=== PATIENT | female | born 1950 | race African-American/Black ===

== ENCOUNTER 2016-06-19 06:38 | Day surgery (SDC) | payer OTHER ==
[2016-06-12 09:57] LABS: BASOPHILS 0.8 %; BASOPHILS ABSOLUTE 0.08 10/3/uL (0.0-0.16); EOSINOPHILS 3.1 %; HEMATOCRIT 39.3 % (36.0-48.0); HEMOGLOBIN 13.1 g/dL (12.0-16.0); IMMATURE GRANULOCYTES 0.3 %; IMMATURE GRANULOCYTES ABSOLUTE 0.03 10/3/uL (0.0-0.11); LYMPHOCYTES 31.8 %; LYMPHOCYTES ABSOLUTE 3.08 10/3/uL (0.67-4.30); MEAN CORPUS HGB CONC 33.3 g/dL (32.0-36.0); MEAN CORPUSCULAR HEMOGLOB 27.9 pg (26.0-34.0); MEAN PLATELET VOLUME 10.9 fL (9.2-13.0); MONOCYTES 4.1 %; NEUTROPHILS 59.9 %; NEUTROPHILS ABSOLUTE 5.79 10/3/uL (2.02-8.40); PLATELET COUNT 250 10/3/uL (150-400); RBC DISTRIBUTION WIDTH 14.3 % (12.0-16.0); WHITE BLOOD CELLS 9.7 10/3/uL (4.5-10.5)
[2016-06-12 09:59] LABS: MANUAL DIFF NO %; MEAN CORPUSCULAR VOLUME 83.6 fL (80-100)
[2016-06-12 10:12] LABS: A/G RATIO 1.5 (0.7-1.9); ALKALINE PHOSPHATASE 61 U/L (45-117); BUN (BLOOD UREA NITROGEN) 10 MG/DL (6-23); CALCIUM, SERUM 9.2 MG/DL (8.5-10.4); CHLORIDE, SERUM 105 MMOL/L (96-112); CO2 (CARBON DIOXIDE) 26 MMOL/L (24-34); CREATININE 0.82 MG/DL (0.55-1.02); GFR AFRICAN AMERICAN 88 ML/MIN (>=60); GFR NON AFRICAN AMERICAN 76 ML/MIN (>=60); GLOBULIN 2.7 G/DL (2.5-4.1); POTASSIUM, SERUM 3.9 MMOL/L (3.5-5.3); SGOT(AST) 18 U/L (5-40); SGPT(ALT) 26 U/L (5-65); SODIUM, SERUM 142 MMOL/L (135-148); TOTAL BILIRUBIN 0.5 MG/DL (0-1.2); TOTAL PROTEIN 6.7 G/DL (6.0-8.5)
[2016-06-12 10:14] LABS: GLUCOSE, SERUM 126 MG/DL (60-99)
--- NOTE | ~2016-06-19 | OP ---
Record Of Operation [facility] [address] [place]. [address] NAME: ANDREAS AGUIRRE : 54 STATUS : [facility] PAT#: [id number] AGE: 65 ADM/REG DATE : 06/19/16 MR#: [id number] REPORT SERV DATE: 06/19/16 DICTATED BY: THERESA ESPINO III DATE: 06/19/16 REPORT STATUS : Draft TRANSCRIBED BY: MODL DATE: 06/19/16 DATE OF PROCEDURE: 06/19/2016 PREOPERATIVE DIAGNOSIS: Biopsy-proven invasive cancer of the left breast. POSTOPERATIVE DIAGNOSIS: Biopsy-proven invasive cancer of the left breast. PROCEDURE: Left breast lumpectomy or segmentectomy with ultrasound wire localization and sentinel lymph node biopsy. SURGEON: Theresa Espino M.D. ANESTHESIA: General with intubation. COMPLICATIONS: None. ESTIMATED BLOOD LOSS: Less than 5 mL. SPECIMENS: Lumpectomy specimen from the left breast and sentinel lymph node from left axilla. DRAINS: None. LAP AND SPONGE COUNT: Correct x3. BRIEF HISTORY: This 65-year-old female was recently found to have a biopsy-proven cancer of the left breast. The patient was offered the option of breast conservative therapy versus mastectomy. The pros and cons, advantages, disadvantages of each were discussed with the patient. The patient chose to have breast conservative therapy and it was therefore felt that a left breast lumpectomy or segmentectomy with sentinel lymph node biopsy and possible axillary dissection was indicated. This procedure, the risks, benefits, and alternatives, including not limited to the risk for bleeding, infection, pain, swelling, scarring, or deformity of the breast, seroma formation, hematoma formation, nerve injury, chronic paresthesia or pain in the arm, shoulder, or axilla, nerve injury with muscle weakness or paralysis in muscles of the upper arm or back or shoulder, chronic lymphedema of the arm, possible need to return to the operating room for a completion axillary dissection or wider excision or even completion mastectomy, and unforeseen complications including deep venous thrombosis, pulmonary embolus, myocardial infarction, stroke, pneumonia, and , were fully and completely explained to the patient and her family prior to surgery. The patient had questions which were answered. She fully understood the risks and agreed to the surgery as planned. DESCRIPTION OF PROCEDURE: After being properly identified and after discussing risks of surgery with the patient and family again in the preoperative area, and after lymphoscintigraphy had been performed per Radiology, and after ultrasound-directed wire localization of the lesion had been performed per Radiology, the patient was taken to the Record Of Operation [address] [address] NAME: ANDREAS AGUIRRE : 54 STATUS : [facility] PAT#: [id number] AGE: 65 ADM/REG DATE : 06/19/16 MR#: [id number] REPORT SERV DATE: 06/19/16 DICTATED BY: THERESA ESPINO III DATE: 06/19/16 REPORT STATUS : Draft TRANSCRIBED BY: WILLA DATE: 06/19/16 operating room and placed in the supine position on the operating room table. General anesthesia was administered and she was intubated without difficulty. The left breast, chest, arm, and axilla were prepped and draped sterilely in the usual fashion, taking care not to dislodge the guidewire from the skin. After an appropriate "time-out" per JCAHO standards, a curvilinear incision was made around the exit site of the guidewire from the skin, excising the ellipse of skin. The guide wire entered at about the 12 o'clock position. Using sharp dissection, we dissected down through the subcutaneous tissue. Hemostasis was controlled with cautery. A generous lumpectomy specimen was then excised down to the chest wall, keeping the guidewire in the center of the specimen. There was a palpable tumor within the specimen. This entire block of tissue was resected and oriented with sutures. This included the major pectoral fascia. The specimen was thus removed oriented with sutures and sent for specimen imaging. It was interpreted as containing the clip and tumor. The specimen was then sent to pathology interpreted as containing the tumor with clear margins. The wound was irrigated copiously with saline. Hemostasis was assured. The subcutaneous tissue was closed with interrupted 2-0 Vicryl sutures. The skin was closed with a running subcuticular 4-0 Monocryl stitch. The incision was injected with 0.5% Marcaine. We then made an incision in the left axilla along the axillary hairline. The incision was continued through the subcutaneous tissue. Using sharp dissection, we dissected into the axilla. Using the navigator probe, we identified a cluster of sentinel lymph nodes. This entire cluster of nodes was resected. The ex-vivo 10-second count of this lymph node cluster after removal was approximately 4600. The background count of the axilla after removal of these lymph nodes was essentially 0/10 seconds. The sentinel lymph nodes were sent to pathology and interpreted as being benign with no evidence for malignancy. Hemostasis was assured. The wound was irrigated copiously with saline. The subcutaneous tissue was closed with running 3-0 Vicryl suture. The skin was closed with running subcuticular 4-0 Monocryl stitch. The incision was injected with 0.5% Marcaine. Dressings were applied. Anesthesia was reversed, and the patient was taken to the recovery room in stable condition. She tolerated the procedure well. Her family was informed of the results of surgery. The patient will be discharged when stable and comfortable. Her family was advised that she should keep the wounds clean and dry for 48 hours, that she should not drive for three to four days after surgery or while using narcotics and that she should resume her usual medications and that she should monitor her glucose carefully. They were advised that she should return to the office in two weeks for followup or sooner if any fever, chills, wound drainage, or other problems prior to that time. She was given a prescription for Percocet 7.5 one t.i.d., #12, as needed for pain, which she was advised not to use while driving. RED/WILLA Record Of [address] [address] NAME: ANDREAS AGUIRRE : 54 STATUS : [facility] PAT#: [id number] AGE: 65 ADM/REG DATE : 06/19/16 MR#: [id number] REPORT SERV DATE: 06/19/16 DICTATED BY: THERESA ESPINO III DATE: 06/19/16 REPORT STATUS : Draft TRANSCRIBED BY: WILLA DATE: 06/19/16 Theresa Espino III, M.D. / [id number] CC: Carlos Mckeon III, M.D.
--- NOTE | ~2016-06-19 | PREOPHP ---
PreOp History and Physical [facility] [id number] [place]. [address] NAME: ANDREAS AGUIRRE : 54 STATUS : [facility]#: [id number] AGE: 65 ADM/REG DATE : 06/19/16 MR#: [id number] REPORT SERV DATE: 06/22/16 DICTATED BY: THERESA ESPINO III DATE: 06/04/16 REPORT STATUS : Draft TRANSCRIBED BY: WILLA DATE: 06/04/16 HISTORY OF PRESENT ILLNESS: This 65-year-old female comes to the operating room for left breast lumpectomy with wire localization sentinel lymph node biopsy, possible axillary dissection for biopsy-proven invasive cancer of the left breast. The patient recently had a routine mammogram. This mammogram showed a mass of concern in her left breast located at the 12 o'clock position. This was a 0.6 mm spiculated mass at the 12 o'clock position. Recent ultrasound-directed core needle biopsy of the mass was performed, confirming this to be an invasive lobular carcinoma, grade 2. The patient has elected to have breast conservative therapy. She comes to the operating room now for left breast lumpectomy with wire localization sentinel lymph node biopsy and possible axillary dissection if the sentinel lymph node is found to contain malignancy. The patient has no palpable breast mass. She has no prior history of breast disease. She has had no pain or tenderness. The patient does have a family history for breast cancer and her sister has had cancer of the breast. PAST MEDICAL HISTORY: 1. Hypertension. 2. Diabetes mellitus. 3. History of sleep apnea. 4. History of deep venous thrombosis of the left arm. PAST SURGICAL HISTORY: Includes hernia repair, back surgery, and hysterectomy. MEDICATIONS: Carafate, hydrochlorothiazide, amlodipine, Lyrica, esomeprazole, carvedilol, Crestor, venlafaxine, Welchol, zolpidem, calcium, and stool softeners. ALLERGIES: NONE. SOCIAL HISTORY: The patient does have a history of alcohol use. FAMILY HISTORY: Positive for breast cancer. REVIEW OF SYSTEMS: The patient complains of back pain. Her 14-point review of systems otherwise unremarkable. PHYSICAL EXAMINATION: GENERAL: An obese female, in no acute distress. She is alert and oriented x3. VITAL SIGNS: Blood pressure 119/69, pulse 63, and temperature 97.5. HEENT: Unremarkable. NECK: Unremarkable. No adenopathy. NEUROLOGIC: Cranial nerves 2 through 12 are normal. LUNGS: Clear. CARDIAC: Normal. BREAST/AXILLA: Both left and right breast are remarkable for diffuse fibroglandular changes PreOp History and Physical [address] [place]. [address] NAME: ANDREAS AGUIRRE : 54 STATUS : [facility]#: [id number] AGE: 65 ADM/REG DATE : 06/19/16 MR#: [id number] REPORT SERV DATE: 06/22/16 DICTATED BY: THERESA ESPINO III DATE: 06/04/16 REPORT STATUS : Draft TRANSCRIBED BY: WILLA DATE: 06/04/16 but with no dominant masses or nodules. Both nipples are normal without discharge. Both axillae normal with no adenopathy. The patient's exam both supine and sitting positions. EXTREMITIES: Normal. LABORATORY DATA: Recent bilateral mammogram and ultrasound of the left breast show a 0.6 cm, spiculated mass at the 12 o'clock position of the left breast, BI-RADS 4, suspicious for malignancy. Biopsy confirms invasive lobular carcinoma. ASSESSMENT: A 65-year-old female with: 1. Invasive lobular cancer of the left breast at the 12 o'clock position. 2. Obesity. 3. Hypertension. 4. Diabetes mellitus. 5. Obstructive sleep apnea. 6. History of deep venous thrombosis of the left arm. PLAN: The patient will be given an option of breast conservative therapy versus mastectomy. The pros and cons, advantages, and disadvantages of each were discussed with the patient. The patient has elected to have breast conservative therapy. She comes to the operating room now for left breast lumpectomy with wire localization sentinel lymph node biopsy and possible axillary dissection. The procedure risks, benefits, and alternatives, including not limited to the risk for bleeding, infection, pain, swelling, scarring, deformity to the breast, seroma formation, hematoma formation, if there is a change in size of the breast, possible need to return for wider excision, completion of mastectomy, or completion axillary dissection, if there is discrepancy between the frozen section and final pathology report, and unforeseen complications including deep venous thrombosis, pulmonary embolus, myocardial infarction, stroke, pneumonia, and , have been explained to the patient prior to surgery. Her questions have been answered. She understands the risks and agrees to surgery as planned. RHJ/ORENL Theresa Espino III, M.D. / [id number] CC: Carlos Mckeon III, M.D.
[~2016-06-19 06:38] MED LIST: AMB10 PO; CALTRA600D PO; CITRACAL PO; COREG12 PO; CRESTOR20 MG PO; DSS PO; EFFEXOR XR150 MG PO; FIBER PILL PO; FIBER PO; HALF81 PO; HCTZ25B PO; IRON OTC PO; IRON PO; LYRICA100 MG PO; MICROZIDE PO; MOBIC7.5 PO; MULTIPLE VIT PO; NEXIUM40 PO; NORCO1 TA1 PO; NORV5 PO; OTC STOOL SOFTENER PO; SUCR PO; VITAMIN B-12 OTC PO; VITAMIN B-122500 MCG SL; VITAMIN D; VITAMIN D31000 UNIT PO; VITAMIN E OTC PO; VITE1000 PO; WELCHOL 625 MG625 MG PO
== END 2016-06-19 14:24 | disposition home or self-care (01) ==
LOC: SDC 06:38
PROVIDERS: Surgery
PROC: 07B60ZX Excision of Left Axillary Lymphatic, Open Approach, Diagnostic (ICD-10-PCS; 2016-06-19)
PROC: 0HBU0ZZ Excision of Left Breast, Open Approach (ICD-10-PCS; principal; 2016-06-19 10:15)
DX: C50.812 Malignant neoplasm of overlapping sites of left female breast (principal); I10 Essential (primary) hypertension; E11.9 Type 2 diabetes mellitus without complications; E66.9 Obesity, unspecified; D64.9 Anemia, unspecified; G47.33 Obstructive sleep apnea (adult) (pediatric); M19.90 Unspecified osteoarthritis, unspecified site; Z86.718 Personal history of other venous thrombosis and embolism; Z17.0 Estrogen receptor positive status [ER+]; Z90.710 Acquired absence of both cervix and uterus; F17.210 Nicotine dependence, cigarettes, uncomplicated; Z98.890 Other specified postprocedural states
CPT/HCPCS: 71020; 76098; 78195; 80053; 82962; 85025; 88307; 88331; 88342; 88360; 88367; 93005; A9270-GY; A9541; J1170; J2405; J2710; J3010; J3370